=== PATIENT | female | born 1980 | race Hispanic/Latino ===

== ENCOUNTER 2024-01-08 14:30 | Outpatient (CLI) | payer OTHER | END 2024-01-08 14:31 | disposition home or self-care (01) | LOC: CSHDTY/OP 14:30 | PROVIDERS: ATTEND Surgery | DX: E66.01 Morbid (severe) obesity due to excess calories (principal) | CPT/HCPCS: 97802 ==

== ENCOUNTER 2024-02-23 10:22 | Outpatient (CLI) | payer OTHER | END 2024-02-23 10:23 | disposition home or self-care (01) | LOC: CSHDTY/OP 10:22 | PROVIDERS: ATTEND Surgery | DX: E66.01 Morbid (severe) obesity due to excess calories (principal) | CPT/HCPCS: 97802 ==

== ENCOUNTER 2024-03-29 09:33 | Outpatient (CLI) | payer OTHER | END 2024-03-29 09:34 | disposition home or self-care (01) | LOC: CSHDTY/OP 09:33 | PROVIDERS: ATTEND Surgery | DX: E66.01 Morbid (severe) obesity due to excess calories (principal) | CPT/HCPCS: 97802 ==

== ENCOUNTER 2024-09-23 08:58 | Outpatient (CLI) | payer MEDICAID | END 2024-09-23 08:59 | disposition home or self-care (01) | LOC: CSHSLEEP 08:58 | PROVIDERS: ATTEND Internal Medicine | DX: G47.33 Obstructive sleep apnea (adult) (pediatric) (principal); R06.83 Snoring; E66.9 Obesity, unspecified | CPT/HCPCS: 95810 ==